=== PATIENT | male | born 1965 | race Caucasian/White ===

== ENCOUNTER 2016-09-19 12:39 | Day surgery (SDC) | payer OTHER ==
[2016-09-19] VITALS (14 sets, daily range): BP systolic 96–131; BP diastolic 55–88; PULSE 72–80; RESP 15–18; Ht 172.7 cm; Wt 88.1 kg
[~2016-09-19] VITALS: Ht 172.7 cm; Wt 88.1 kg
[~2016-09-19 12:39] MED LIST: ASPI-535 PO; DIAZ5TAB4 PO; HYDR12.58 PO; LISI-325 PO; MELO7.5O PO; TAMS0.4C2 PO
--- NOTE | 2016-09-19 14:45 | RADRPT ---
PROCEDURE: XR Chest. CLINICAL INDICATION: Preoperative. TECHNIQUE: Single frontal view. COMPARISON: None. FINDINGS: The lungs are clear. The heart size is normal. There is no pleural effusion. There is no pneumothorax. IMPRESSION: 1. Normal chest radiograph. RPTAT: QQ .Matthew Charlton MD, Date Time Electronically viewed and signed by .Matthew Charlton MD, on 09/19/2016 14:45 .R/
[2016-09-19] MEDS ORDERED: GELATIN SIZE 100 SPONGE ONE (15:07)
[2016-09-19] MEDS ORDERED: HEPARIN 1000 UNITS/ML 10 ML INJ ONE (15:07)
[2016-09-19] MEDS ORDERED: LIDOCAINE 1% (STERILE-PAK) 30 ML INJ ONE (15:07)
[2016-09-19] MEDS ORDERED: THROMBIN 5000 UNIT VIAL ONE (15:08)
[2016-09-19] MEDS ORDERED: PROPOFOL 20 ML ONE (15:13)
[2016-09-19] MEDS ORDERED: MIDAZOLAM 1 MG/ML 2 ML INJ ONE (15:13)
[2016-09-19] MEDS ORDERED: METOCLOPRAMIDE 10 MG INJ ONE (15:13)
[2016-09-19] MEDS ORDERED: FENTAnyl 50 MCG/ML VIAL ONE (15:41)
[2016-09-19] MEDS ORDERED: ONDANSETRON 4 MG INJ IV PRN (16:00)
[2016-09-19] MEDS ORDERED: DIPHENHYDRAMINE 50 MG INJ IV PRN (16:00)
[2016-09-19] MEDS ORDERED: METOCLOPRAMIDE 10 MG INJ IV PRN (16:00)
[2016-09-19] MEDS ORDERED: HYDROmorphONE (0.2 MG/ML) 10ML SYG IV PRN ×3 (16:00)
[2016-09-19] MEDS ORDERED: MEPERIDINE 25 MG INJ IV PRN (16:00)
--- NOTE | 2016-09-19 16:40 | OPR ---
Date/Time of Note Date/Time of Note DATE: 09/19/16 TIME: 16:38 Operative Report Preoperative Diagnosis Varicose vein RLE Postoperative Diagnosis Same Operation Performed Phlebectomy RLE Surgeon: VANIA SMITH MD Anesthesia: MAC Estimated Blood Loss: none Specimens Vein Complications: None Pt Condition Post Procedure: stable Disposition: PACU VANIA SMITH MD Sep 19, 2016 16:39
[2016-09-19] MEDS ORDERED: CEFAZOLIN 1 GM INJ ONE (16:51)
--- NOTE | 2016-09-19 19:28 | OPR ---
DATE OF OPERATION: PREOPERATIVE DIAGNOSIS: Varicose veins, right lower extremity. POSTOPERATIVE DIAGNOSIS: Varicose veins, right lower extremity. OPERATION PERFORMED: Phlebectomy, right lower extremity. SURGEON: Vania David MD ANESTHESIA: Local plus IV sedation. CONSENT: Risks, benefits, complications, alternative therapies explained to the patient and the [facility]. Consent obtained. OPERATIVE TECHNIQUE: The patient was placed in supine position, prepped, and draped in usual steril e fashion. Lidocaine 1% was used throughout the operation for local anesthesia. A time-out was shira led and I started. I made a 1 cm incision over the anterior aspect of the right leg. Incision was taken down to the mills bcutaneous tissue, which was then opened using electrocautery. Cluster of veins were dissected usin g a mosquito clamp with ____ removed. The procedure was repeated posteriorly in the right leg. Bot h wounds were irrigated and closed with 3-0 Vicryl suture for subcutaneous and Steri-Strips for the skin. The patient tolerated procedure well. Dictated By: VANIA BANKS/TAMERA Conf#: [id number] DID#: [id number]
--- NOTE | 2016-09-23 15:15 | RADRPT ---
Vent Rate: 64 bpm RR Interval: 0 msec NM Interval: 170 msec QRS Duration: 90 msec QT Interval: 364 msec QTC Interval: 375 msec P-R-T [place]: 49 - 2 - 26 degrees Normal sinus rhythm Possible Anterior infarct , age undetermined Abnormal ECG Electronically Signed By: Jack Grubbs [id number]
== END 2016-09-19 18:15 | disposition home or self-care (01) ==
LOC: SDS 12:39
PROVIDERS: ATTEND Thoracic Surgery (Cardiothoracic Vascular Surgery)
DX: I83.891 Varicose veins of right lower extremity with other complications (principal); I10 Essential (primary) hypertension
CPT/HCPCS: 37722; 71010; 88304; 93005; J0690; J1644; J2250; J2765; J3010; Z7512; Z7610

== ENCOUNTER 2017-07-13 08:50 | Day surgery (SDC) | END 2017-07-13 13:15 | disposition home or self-care (01) ==

== ENCOUNTER 2018-08-28 11:59 | Day surgery (SDC) | payer OTHER ==
[2018-08-28] VITALS (14 sets, daily range): BP systolic 112–124; BP diastolic 70–85; PULSE 66–80; RESP 15–23; Ht 170.2 cm; Wt 83.5 kg
[~2018-08-28] VITALS: Ht 170.2 cm; Wt 83.5 kg
[~2018-08-28 11:59] MED LIST changes: -ASPI-535 PO; +ASPI81TA52 PO; -DIAZ5TAB4 PO; +ERGO500013 PO; -LISI-325 PO; +LISI10TA2 PO; -MELO7.5O PO; +PRAV20TA63 PO
[2018-08-28] MEDS ORDERED: GELATIN SIZE 100 SPONGE ONE (12:51)
[2018-08-28] MEDS ORDERED: LIDOCAINE 1% (MPF) 30 ML INJ ONE (12:51)
[2018-08-28] MEDS ORDERED: HEPARIN 1000 UNITS/ML 10 ML INJ ONE (12:51)
[2018-08-28] MEDS ORDERED: THROMBIN (BOVINE) 5,000 UNIT VIAL TP ONE (12:51)
[2018-08-28] MEDS ORDERED: IOHEXOL 300MG/ML 30 ML BTL ONE (12:51)
[2018-08-28] MEDS ORDERED: TAMS-14 PO (12:54)
[2018-08-28] MEDS ORDERED: ATOR10TA65 PO (12:55)
--- NOTE | 2018-08-28 13:48 | PREAC ---
Date/Time of Note Date/Time of Note DATE: 08/28/18 TIME: 13:46 Anesthesia Eval and Record Evaluation Time Pre-Procedure Interview DATE: 08/28/18 TIME: 13:46 Age 53 Sex male NPO: 8 hrs Preoperative diagnosis Varicose vein, left lower extremity Planned procedure Phlebectomy Past Medical History Past Medical History: Includes Cardio: HTN, Dyslipidemia Surgery & Anesthesia Issues No known issue Meds Anticoagulation: Yes Beta Dianna within 24 hr: Yes Reason Beta Dianna not given: Pt. not on B-Dianna Reported Medications Atorvastatin Calcium (Atorvastatin Calcium) 10 Mg Tablet, 10 MG PO QHS, #30 TAB 08/28/18 Tamsulosin Hcl* (Flomax*) 0.4 Mg Cap.er.24h, 0.4 MG PO HS, CAP 08/28/18 Lisinopril* (Lisinopril*) 10 Mg Tablet, 10 MG PO DAILY, #30 TAB 07/13/17 Tamsulosin Hcl* (Tamsulosin Hcl*) 0.4 Mg Cap.er.24h, 0.4 MG PO HS, CAP 07/13/17 Aspirin (Low Dose Aspirin) 81 Mg Tablet.dr, 81 MG PO DAILY, #30 TAB 07/13/17 Hydrochlorothiazide* (Hydrochlorothiazide*) 12.5 Mg Tablet, 12.5 MG PO DAILY, #30 TAB 07/13/17 Discontinued Reported Medications Ergocalciferol (Vitamin D2) (VITAMIN D2) 50,000 Unit Capsule, 50063 UNIT PO EVERY MONDAY, CAP 07/13/17 Pravastatin Sodium* (Pravastatin Sodium*) 20 Mg Tablet, 20 MG PO HS, TAB 07/13/17 Meds reviewed: Yes Allergies Coded Allergies: Penicillins (Verified Allergy, Unknown, RASH, 08/28/18) PER PT Allergies Reviewed: Yes Labs/Studies Labs Reviewed: Reviewed by anesthesiologist test: N/A Pre-procedure Exam Last vitals Vital Signs Date Temp Pulse Resp B/P (MAP) Pulse Ox O2 O2 Flow FiO2 Time Delivery Rate 08/28/18 97.9 66 16 119/85 100 Room Air 12:42 (96) Airway: Adequate mouth opening Mallampati: Mallampati I Teeth: Normal Lung: Normal Heart: Normal ASA Physical Status ASA physical status: 2 Emergency: None Planned Anesthetic General/MAC: LMA Planned Pain Management Parenteral pain med Pre-operative Attestations Prior to commencing anesthesia and surgery, the patient was re-evaluated, there was verification of: *The patient's identity *The results of appropriate recent lab work and preoperative vital signs *The above evaluation not changing prior to induction *Anesthetic plan, risk benefits, alternative and complications discussed with patient/family; questions answered; patient/family understands, accepts and wishes to proceed. ALLYSON SONG MD Aug 28, 2018 13:48
[2018-08-28] MEDS ORDERED: LIDOCAINE 2% (SDV) 5 ML INJ ONE (14:52)
[2018-08-28] MEDS ORDERED: MEPERIDINE 100 MG INJ ONE (14:52)
[2018-08-28] MEDS ORDERED: PROPOFOL 20 ML ONE (14:52)
[2018-08-28] MEDS ORDERED: CEFAZOLIN 1 GM INJ ONE (14:52)
[2018-08-28] MEDS ORDERED: EPHEDrine 50 MG INJ ONE (15:08)
[2018-08-28] MEDS ORDERED: VANCOMYCIN 1 GM (PMX) 250 ML ONE (15:29)
--- NOTE | 2018-08-28 16:03 | OPR ---
Date/Time of Note Date/Time of Note DATE: 08/28/18 TIME: 16:00 Operative Report Procedure Date: Aug 28, 2018 Preoperative Diagnosis Left lower extremity varicosities Postoperative Diagnosis Same Operation/Procedure Performed Left lower extremity saphenous vein phlebectomy Surgeon see signature line Officer Captain None Anesthesia Type: general Estimated Blood Loss: minimal Transfusion none Specimen Left lower extremity varicosities Grafts/Implants none Complications none Pt Condition Post Procedure: stable Disposition: PACU Procedure Description Patient was placed in supine position prepped and draped in usual sterile fashion soft and varicosities in the left lower extremity were noted I made several incisions up to 1 cm in diameter left thigh large amount of varicosities a total of about 30 cm of varicosities were removed the wounds were irrigated and closed in 2 layers of 4-0 Vicryl suture for subcu and Steri-Strips for the skin pressure wrapping was done patient tolerated procedure well end of dictation VANIA SMITH MD Aug 28, 2018 16:03
--- NOTE | 2018-08-28 17:32 | PAC ---
Date/Time of Note Date/Time of Note DATE: 08/28/18 TIME: 17:29 Post-Anesthesia Notes Post-Anesthesia Note Last documented vital signs Vital Signs Date Temp Pulse Resp B/P (MAP) Pulse Ox O2 O2 Flow FiO2 Time Delivery Rate 08/28/18 97.5 71 18 123/80 98 Room Air 17:17 (94) Activity: WNL Respiratory function: WNL Cardiovascular function: WNL Mental status: Baseline Pain reasonably controlled: Yes Hydration appropriate: Yes Nausea/Vomiting absent: Yes Comments BP: 116/73, HR: 77, RR: 20, PULSE OX: 96, TEMP: 98.4 ALLYSON SONG MD Aug 28, 2018 17:31
== END 2018-08-28 17:45 | disposition home or self-care (01) ==
LOC: SDS 11:59
PROVIDERS: ATTEND Thoracic Surgery (Cardiothoracic Vascular Surgery)
DX: I83.892 Varicose veins of left lower extremity with other complications (principal); I10 Essential (primary) hypertension
CPT/HCPCS: 37700; 88304; J1644; J2175; J3370; Z7512; Z7610; J0690; Q9967